=== PATIENT | female | born 1970 | race Caucasian/White ===

== ENCOUNTER 2021-02-03 21:09 | Emergency (ER) | payer MEDICARE, OTHER ==
[~2021-02-03] VITALS: Ht 170.2 cm; Wt 113.4 kg
[~2021-02-03 21:09] MED LIST: ALBU90OI6 PO; BENZ100A PO; BUPR150ER PO; Buspirone HCl30 MG PO; DIVA500ER PO; Sudogest30 MG PO; ZIPR40 PO; ZIPR80 PO; [UNRECOGNIZED DRUG - OTHER] PO
[2021-02-03] MEDS ORDERED: DOXY100 PO (23:57)
== END 2021-02-04 00:05 | disposition home or self-care (01) ==
LOC: ER 21:09
DX: J18.9 Pneumonia, unspecified organism (principal); F17.210 Nicotine dependence, cigarettes, uncomplicated; Z79.82 Long term (current) use of aspirin; Z79.899 Other long term (current) drug therapy
CPT/HCPCS: 71045; 87081; 87430; 99284-25; A9270

== ENCOUNTER 2022-04-05 20:37 | Emergency (ER) | payer OTHER, MEDICARE ==
[~2022-04-05] VITALS: Ht 170.2 cm; Wt 111.6 kg
[~2022-04-05 20:37] MED LIST changes: +DOXY100 PO
== END 2022-04-05 23:27 | disposition home or self-care (01) ==
LOC: ER 20:37
DX: S80.211A Abrasion, right knee, initial encounter (principal); S80.811A Abrasion, right lower leg, initial encounter; S90.414A Abrasion, right lesser toe(s), initial encounter; S02.31XA Fracture of orbital floor, right side, initial encounter for closed fracture; F17.210 Nicotine dependence, cigarettes, uncomplicated; V87.8XXA Person injured in other specified noncollision transport accidents involving motor vehicle (traffic), initial encounter; Z79.899 Other long term (current) drug therapy; Z79.82 Long term (current) use of aspirin
CPT/HCPCS: 70450; 72125; 73562-RT; 73630; 90714; A9270

== ENCOUNTER → 2022-08-17 | Outpatient (CLI) | payer MEDICARE, OTHER ==
[2022-08-17 09:05] LABS: Source, Urine Clean Catch
[2022-08-17 09:28] LABS: Appearance, Urine Clear (Clear); Bilirubin, Urine Neg (Neg); Blood, Urine 1+ (Neg); Color, Urine Yellow (P-Yellow); Glucose Qualitative, Urine Neg (Neg); Ketones, Urine Neg (Neg); Leukocyte Esterase, Urine Neg (Neg); Nitrite, Urine Neg (Neg); Protein, Urine Neg (Neg); Specific Gravity, Urine 1.015 (1.003-1.022); Urobilinogen, Urine NORM (Normal)
[2022-08-17 09:43] LABS: Red Blood Cells, Urine 0-2 /hpf (0-2); White Blood Cells, Urine 0-2 /hpf (0-5)
[2022-08-17 09:44] LABS: Bacteria Mod /hpf; Squamous Epithelial Cells Rare /hpf (Few)
[2022-08-17 09:45] LABS: Mucus Light (0-Heavy)
== END ==
LOC: LAB SHORT 09:02 → LAB 09:02 → LAB FUT 08-10 18:50
DX: N39.0 Urinary tract infection, site not specified (principal)
CPT/HCPCS: 81001; 87086

== ENCOUNTER 2023-02-20 22:42 | Emergency (ER) | payer MEDICARE, OTHER ==
[~2023-02-20] VITALS: Ht 172.7 cm; Wt 112.9 kg
[~2023-02-20 22:42] MED LIST changes: +CEPH500 PO; +Cyclobenzaprine5 MG PO; +LATUDA PO
[2023-02-21 01:00] VITALS: BP 128/80
== END 2023-02-21 01:44 | disposition home or self-care (01) ==
LOC: ER 22:42
DX: S01.01XA Laceration without foreign body of scalp, initial encounter (principal); W01.0XXA Fall on same level from slipping, tripping and stumbling without subsequent striking against object, initial encounter; Z88.6 Allergy status to analgesic agent; Z88.8 Allergy status to other drugs, medicaments and biological substances; Z79.2 Long term (current) use of antibiotics; Z79.52 Long term (current) use of systemic steroids; Z79.899 Other long term (current) drug therapy; F17.210 Nicotine dependence, cigarettes, uncomplicated
CPT/HCPCS: 12002; 70450; 72125; 99283-25; A9270

== ENCOUNTER 2023-07-14 05:29 | Emergency (ER) | payer MEDICARE, OTHER ==
[~2023-07-14] VITALS: Ht 172.7 cm; Wt 117.5 kg
[2023-07-14 09:09] VITALS: BP 110/74
== END 2023-07-14 09:10 | disposition home or self-care (01) ==
LOC: ER 05:29
DX: G43.909 Migraine, unspecified, not intractable, without status migrainosus (principal); Z88.6 Allergy status to analgesic agent; Z88.8 Allergy status to other drugs, medicaments and biological substances; Z79.899 Other long term (current) drug therapy; F43.10 Post-traumatic stress disorder, unspecified; F17.210 Nicotine dependence, cigarettes, uncomplicated
CPT/HCPCS: 96361; 96374; 96375; 99283-25; J0780; J1100; J1200; J7030

== ENCOUNTER 2024-05-23 07:46 | Emergency (ER) | payer MEDICARE, OTHER ==
[~2024-05-23] VITALS: Ht 170.2 cm; Wt 113.4 kg
[2024-05-23] MEDS ORDERED: Ketorolac Tromethamine 30mg Vial IV ONE (08:00)
[2024-05-23 08:19] LABS: BASOPHILS ABSOLUTE AUTO 0.05 K/mm3 (0.00-0.23); BASOPHILS PERCENT AUTO 1 % (0-2); EOSINOPHILS ABSOLUTE AUTO 0.14 K/mm3 (0.00-0.68); EOSINOPHILS PERCENT AUTO 2 % (0-6); Hematocrit 42.4 % (33.0-51.0); IMMATURE GRAN ABSOLUTE AUTO 0.01 K/mm3 (0.00-0.10); IMMATURE GRAN PERCENT AUTO 0 % (0-1); LYMPHOCYTES ABSOLUTE AUTO 2.36 K/mm3 (0.84-5.20); LYMPHOCYTES PERCENT AUTO 34 % (21-46); MONOCYTES ABSOLUTE AUTO 0.65 K/mm3 (0.16-1.47); MONOCYTES PERCENT AUTO 9 % (4-13); Mean Corpuscular HGB 28.6 pg (26.0-34.0); Mean Corpuscular Volume 87 fL (80-100); Mean Platelet Volume 10.1 fL (9.1-12.4); NEUTROPHILS PERCENT AUTO 54 % (41-73); Platelet Count 312 K/mm3 (150-400); RDW Coefficient Variation 13.4 % (11.7-14.2); RDW Standard Deviation 41.7 fL (35.1-46.3); White Blood Cell Count 6.91 K/mm3 (4.00-11.30)
[2024-05-23] MEDS ORDERED: PROP10 PO (08:19)
[2024-05-23] MEDS ORDERED: CLONAZEPAM1 MG PO (08:19)
[2024-05-23] MEDS ORDERED: TRAZ100 PO (08:19)
[2024-05-23 09:09] LABS: Albumin, Blood 3.2 g/dL (3.4-5.0); Albumin/Globulin Ratio 0.8 (0.8-1.8); Bilirubin, Total 0.2 mg/dL (0.1-1.0); Bun/Creatinine Ratio 20.1 (12.0-20.0); Calcium, Blood 9.4 mg/dL (8.5-10.1); Creatinine, Blood 0.7 mg/dL (0.40-1.00); Globulin, Blood 3.9 g/dL (2.2-4.0); Potassium, Blood 4.3 mmol/L (3.5-5.5); Total Protein, Blood 7.1 g/dL (6.4-8.2)
[2024-05-23 10:30] VITALS: BP 137/98
[2024-05-23 10:32] LABS: Source, Urine Voided
[2024-05-23 10:34] LABS: Appearance, Urine Clear (Clear); Bilirubin, Urine Neg (Neg); Blood, Urine 1+ (Neg); Color, Urine Yellow (P-Yellow); Glucose Qualitative, Urine Neg (Neg); Ketones, Urine Neg (Neg); Leukocyte Esterase, Urine Neg (Neg); Nitrite, Urine Neg (Neg); Protein, Urine Neg (Neg); Urobilinogen, Urine NORM (Normal)
[2024-05-23 10:50] LABS: Amorphous Mod (0-Heavy); Bacteria Rare /hpf; Mucus Heavy (0-Heavy); Red Blood Cells, Urine 0-2 /hpf (0-2); White Blood Cells, Urine 0-2 /hpf (0-5)
[2024-05-23 10:53] LABS: Hyaline Casts 0-2 /lpf (0-2); Squamous Epithelial Cells Mod /hpf (Few)
[2024-05-23] MEDS ORDERED: IBUP800 PO (11:06)
== END 2024-05-23 11:16 | disposition home or self-care (01) ==
LOC: ER 07:46
PROVIDERS: Emergency Medicine
DX: R07.89 Other chest pain (principal); F17.210 Nicotine dependence, cigarettes, uncomplicated; F43.10 Post-traumatic stress disorder, unspecified; G43.909 Migraine, unspecified, not intractable, without status migrainosus; Z79.899 Other long term (current) drug therapy; Z88.8 Allergy status to other drugs, medicaments and biological substances; Z88.6 Allergy status to analgesic agent
CPT/HCPCS: 71045; 80053; 81001; 83690; 84484; 85025; 93005; 93010; 96374; 99284-25; J1885

== ENCOUNTER 2024-07-12 02:17 | Emergency (ER) | payer MEDICARE, OTHER ==
[~2024-07-12 02:17] MED LIST changes: +CLONAZEPAM1 MG PO; +IBUP800 PO; +PROP10 PO; +TRAZ100 PO
[2024-07-12 09:10] LABS: Appearance, Urine Clear (Clear); Color, Urine Yellow (P-Yellow); Glucose Qualitative, Urine Neg (Neg); Ketones, Urine Neg (Neg); Leukocyte Esterase, Urine Neg (Neg); Nitrite, Urine Neg (Neg); Protein, Urine Neg (Neg)
[2024-07-12 09:11] LABS: Amorphous Light (0-Heavy); Bacteria Rare /hpf; Bilirubin, Urine Neg (Neg); Blood, Urine 1+ (Neg); Red Blood Cells, Urine 0-2 /hpf (0-2); Squamous Epithelial Cells Rare /hpf (Few); Urobilinogen, Urine 1+ (Normal); White Blood Cells, Urine 0-2 /hpf (0-5)
== END 2024-07-12 05:03 | disposition home or self-care (01) ==
LOC: ER 02:17
PROVIDERS: Emergency Medicine
DX: R10.31 Right lower quadrant pain (principal); F43.10 Post-traumatic stress disorder, unspecified; F17.210 Nicotine dependence, cigarettes, uncomplicated; Z79.899 Other long term (current) drug therapy; Z88.6 Allergy status to analgesic agent; Z88.8 Allergy status to other drugs, medicaments and biological substances
CPT/HCPCS: 81001; 96374; 99284-25